=== PATIENT | female | born 1945 | race Caucasian/White ===

== ENCOUNTER 2017-06-11 10:51 | Emergency (ER) | payer MEDICARE ==
[2017-06-11] MEDS ORDERED: IBUPROFEN 800 MG TABLET PO STA (11:55)
--- NOTE | 2017-06-11 12:01 | XRAY Preliminary Report ---
Exam: XR KNEE 4 VIEW RT IMPRESSION: No acute osseous abnormality. Small effusion. [facility] SITE ID: [id number]
[2017-06-11] MEDS ORDERED: IBUPROFEN 800 MG TABLET PO ONE (12:02)
--- NOTE | 2017-06-11 12:03 | XRAY Report ---
EXAM: RIGHT KNEE RADIOGRAPHY EXAM DATE: 06/11/2017 11:36 AM. CLINICAL HISTORY: Trauma. Unable to bear weight. COMPARISON: None. TECHNIQUE: 4 views. FINDINGS: Bones: No acute fracture. Lateral plate and screw fixation of the proximal tibia is without evidence of hardware loosening or failure. Joints: No dislocation. Small suprapatellar effusion. Moderate to severe degenerative changes in the lateral compartment. Soft Tissues: No focal abnormality. IMPRESSION: No acute osseous abnormality. Small effusion. [facility] Referring Provider Line: [phone] SITE ID: [id number]
--- NOTE | 2017-06-11 12:15 | ED Physician Documentation ---
PD HPI LOWER EXT INJURY - Stated complaint Stated Complaint: R KNEE PX - Chief complaint Chief Complaint: Ext Problem - History obtained from History obtained from: Patient - History of Present Illness PD HPI LOW EXT INJURY LOCATION: Right, Knee Type of injury: Other (No recent injury.) Where injury occurred: Street Timing - onset: Last night Timing - details: Still present Worsened by: Moving, Other (weight bearing) Associated symptoms: Swelling Contributing factors: Prior ortho surgery - Additional information Additional information: The patient is a 72-year-old female who is visiting here from [facility], and presents with pain in her right knee that started suddenly last night when walking out of a restaurant. She denies any traumatic injury. She has noticed slight swelling of the knee, and pain that is most problematic when weightbearing. She underwent ORIF of her right knee in 2005. Review of Systems Constitutional: denies: Fever Nose: denies: Congestion Cardiac: denies: Chest pain / pressure Respiratory: denies: Dyspnea GI: denies: Nausea, Vomiting Skin: denies: Rash Musculoskeletal: reports: Joint pain (right knee) Neurologic: denies: Focal weakness, Numbness PD PAST MEDICAL HISTORY - Past Medical History Past Medical History: Yes Respiratory: Asthma - Past Surgical History Past Surgical History: Yes Ortho: Other (Status post ORIF right knee, 2005.) HEENT: Tonsil/Adenoidectomy - Present Medications Home Medications: Ambulatory Orders Medication Instructions Recorded Confirmed No Known Home Medications [No 06/11/17 06/11/17 Known Home Medications] - Allergies Allergies/Adverse Reactions: Allergies Allergy/AdvReac Type Severity Reaction Status Date / Time aspirin Allergy Respiratory Verified 06/11/17 11:00 Penicillins Allergy Rash Verified 06/11/17 11:00 prednisone Allergy Unknown Verified 06/11/17 11:00 Sulfa (Sulfonamide Allergy Rash Verified 06/11/17 11:00 Antibiotics) - Social History Does the pt smoke?: No Smoking Status: Never smoker Does the pt drink ETOH?: No Does the pt have substance abuse?: No Additional Social History: Lives in [facility], and is visiting her daughter here. - Immunizations Immunizations are current?: No Immunizations: No immun PD ED PE NORMAL - Vitals Vital signs reviewed: Yes (initially hypertensive.) - General General: Alert and oriented X 3, Other (overweight) - HEENT HEENT: Atraumatic - Neck Neck: No bony TTP - Respiratory Respiratory: No respiratory distress - Back Back: No spinal TTP - Derm Derm: No rash - Extremities Extremities: No edema, No calf tenderness / cord, Other (There is tenderness to palpation at the anterior medial aspect of the right knee mostly in the infrapatellar region. There is slight associated swelling. There is no warmth or erythema. There is no joint instability detected. Distal neurovascular is intact. She is able to extend the knee fully, and can flex it to 75, but with exacerbation of her discomfort.) - Neuro Neuro: Alert and oriented X 3, No motor deficit, No sensory deficit Results - Vitals Vitals: Oxygen O2 Source Room air - Rads (name of study) Right knee Radiology: Prelim report reviewed, EMP read contemporaneously, See rad report ( No acute osseous abnormality. Small effusion.) PD MEDICAL DECISION MAKING - ED course Complexity details: reviewed results, re-evaluated patient, considered differential, d/w patient ED course: The patient's presentation is significant for right knee pain with small effusion detected on imaging study. There is no acute bony abnormality detected. Treatment in the emergency department included administration of ibuprofen 800 mg orally. She was not able to tolerate application of a knee immobilizer, but felt improvement with application of a compression wrap, and demonstrated ability to ambulate using a walker. A walker was dispensed. I discussed with her the results of the x-ray, symptomatic treatment and outpatient follow-up, as well as potentially worrisome signs or symptoms that should prompt reevaluation in the emergency department. Departure - Departure Disposition: 01 Home, Self Care Clinical Impression: Effusion, right knee Condition: Stable Instructions: ED Effusion Knee Comments: Use the compression wrap on your right knee for the next 4 or 5 days. Apply ice pack intermittently for at least 3 days. You can use ibuprofen, up to 600 mg 3 times daily. Use the walker if it helps with ambulation. Follow up with your primary physician upon return to [place]. Return to the emergency department if you develop increasing pain or swelling, or otherwise worsening symptoms. Discharge Date/Time: 06/11/17 13:10
[2017-06-11 13:12] VITALS: BP 137/93
== END 2017-06-11 13:10 | disposition home or self-care (01) ==
LOC: ED 10:51
DX: M25.461 Effusion, right knee (principal); J45.909 Unspecified asthma, uncomplicated
CPT/HCPCS: 73564; 99283; 99284; A9270